=== PATIENT | female | born 1970 | race Two or more races ===

== ENCOUNTER 2017-10-11 08:40 | Emergency (ER) | payer OTHER ==
[~2017-10-11] VITALS: Ht 162.6 cm; Wt 52.2 kg
[~2017-10-11 08:40] MED LIST: EXCEDRIN BACK &1 TAB; INTESTINEX1 CAP PO; LEVSIN/SL0.125 MG PO; PROTONIX40 MG PO; ZANTAC300 MG PO; ZOFRAN4 MG PO
== END 2017-10-11 10:56 | disposition home or self-care (01) ==
LOC: ER 08:40
DX: S23.3XXA Sprain of ligaments of thoracic spine, initial encounter (principal); W22.8XXA Striking against or struck by other objects, initial encounter; Y93.89 Activity, other specified; Y92.092 Bedroom in other non-institutional residence as the place of occurrence of the external cause; Y99.8 Other external cause status

== ENCOUNTER 2020-03-25 08:55 | Outpatient (CLI) | payer OTHER | END 2020-03-25 09:16 | disposition home or self-care (01) | LOC: RAD 08:55 → MRI 09:15 → RAD 09:16 | PROVIDERS: ATTEND Specialist | DX: R51 Headache (principal); N95.1 Menopausal and female climacteric states; Z12.11 Encounter for screening for malignant neoplasm of colon; Z12.39 Encounter for other screening for malignant neoplasm of breast; Z13.1 Encounter for screening for diabetes mellitus; Z13.220 Encounter for screening for lipoid disorders; E55.9 Vitamin D deficiency, unspecified; B34.8 Other viral infections of unspecified site; N64.59 Other signs and symptoms in breast | CPT/HCPCS: 70551 ==

== ENCOUNTER 2021-12-24 06:38 | Outpatient (CLI) | payer OTHER | END 2021-12-24 06:52 | disposition home or self-care (01) | LOC: SONOGRAMA 06:38 | PROVIDERS: ATTEND Internal Medicine Gastroenterology | DX: R10.9 Unspecified abdominal pain (principal) ==

== ENCOUNTER 2023-05-16 15:17 | Emergency (ER) | payer OTHER ==
[~2023-05-16] VITALS: Ht 162.6 cm; Wt 49.9 kg
[2023-05-16 19:19] LABS: URINE APPEARANCE Clear; URINE BILIRRUBIN Negative (NEGATIVE); URINE BLOOD Large; URINE COLOR Yellow; URINE GLUCOSE Negative (NEGATIVE); URINE LEUKOCYTE Negative; URINE NITRATE Negative; URINE UROBILINOGEN 0.2 E.U./dl
[2023-05-16 19:23] LABS: URINE BACTERIA 617.3 uL (0.0-1933); URINE EPITHELIAL CELLS 73.8 uL (0.0-38.8); URINE RBC 324.3 uL (0.0-20.8); URINE WBC 42.9 uL (0.0-23.2)
[2023-05-16 19:23] LABS: HEMATOCRIT 36.8 % (36.0-45.00); HEMOGLOBIN 12.4 g/dL (12.0-15.00); MEAN CELL VOLUME 92.8 fL (80.00-100.00); MEAN CORPUSCULAR HEMOGLOBIN 31.2 pg (27.00-32.0); MEAN CORPUSCULAR HGB CONC 33.6 g/dl (32.0-36.0); PLATELET COUNT 251 K/uL (150-450); RED BLOOD COUNT 3.97 M/uL (4.00-6.00); RED CELL DISTRIBUTION WIDTH 12.4 % (11.5-14.5)
[2023-05-16 19:38] LABS: URINE PROTEIN 100 (NEGATIVE)
[2023-05-16 19:45] LABS: CALCIUM 9.2 mg/dL (8.5-10.1); CREATININE SERUM 0.5 mg/dL (0.55-1.02); GFR 128.57; POTASSIUM 4.07 mEq/L (3.5-5.1)
== END 2023-05-16 20:54 | disposition home or self-care (01) ==
LOC: ER 15:17
PROVIDERS: General Practice
DX: R59.0 Localized enlarged lymph nodes (principal)